=== PATIENT | male | born 1950 | race Caucasian/White ===

== ENCOUNTER → 2021-01-28 | Outpatient (CLI) | payer MEDICARE | END | disposition home or self-care (01) | LOC: RAH 14:39 | PROVIDERS: ATTEND Family Medicine | DX: I73.9 Peripheral vascular disease, unspecified (principal) | CPT/HCPCS: 93925 ==

== ENCOUNTER 2024-08-21 14:35 | Emergency (ER) | payer MEDICARE ==
[~2024-08-21] VITALS: Ht 180.3 cm; Wt 100.7 kg
[2024-08-21 14:36] VITALS: TEMP 98
[2024-08-21] MEDS: ORPHENADRINE 60MG/2ML IM ONE (15:41)
[2024-08-21] MEDS: TRIAMCINOLONE ACETONIDE 40 MG/ML 1ML VIAL IM ONE (15:41)
[2024-08-21 18:53] VITALS: BP 164/79; PULSE 94; RESP 20; O2SAT 99
[2024-08-21] MEDS ORDERED: CYCL10TA16 PO (18:58)
== END 2024-08-21 19:07 | disposition home or self-care (01) ==
LOC: EDH 14:35
DX: G57.01 Lesion of sciatic nerve, right lower limb (principal); M79.661 Pain in right lower leg
CPT/HCPCS: 99285; 93971; 73502; 72100; 96372 ×2; J3301; J2360

== ENCOUNTER → 2024-09-22 | Outpatient (CLI) | payer MEDICARE ==
[~2024-09-22] MED LIST: CYCL10TA16 PO
== END | disposition home or self-care (01) ==
LOC: RAH 07:54
PROVIDERS: ATTEND Physician Assistant
DX: M17.0 Bilateral primary osteoarthritis of knee (principal); M25.561 Pain in right knee; M25.562 Pain in left knee
CPT/HCPCS: 73565; 73560

== ENCOUNTER → 2025-04-30 | Outpatient (CLI) | payer MEDICARE ==
--- NOTE | 2025-04-30 13:26 | HMCIMG ---
Exam Type: LUMBAR W FLEXION/EXTENSION Clinical Information: RADICULOPATHY, LUMBAR REGION; LOW BACK PAIN Comparison: None Findings: Exam of the lumbosacral spine demonstrates no evidence of fracture or subluxation. There are moderate spondylitic changes. The facet joints show moderate degenerative changes. Grade 1 anterolisthesis of L4 over L5 caused by degeneration of the facet joints, not fractures. The disc spaces are intact. Bone mineralization is normal. Impression: Spondylitic changes and degenerative changes of the apophyseal joints as noted.
== END | disposition home or self-care (01) ==
LOC: RAH 10:55
PROVIDERS: ATTEND Physician Assistant
DX: M47.26 Other spondylosis with radiculopathy, lumbar region (principal); M43.16 Spondylolisthesis, lumbar region; M54.51 Vertebrogenic low back pain; M54.59 Other low back pain
CPT/HCPCS: 72114